=== PATIENT | female | born 1975 | race Caucasian/White ===

== ENCOUNTER 2017-07-16 08:43 | Emergency (ER) | payer OTHER ==
--- NOTE | 2017-07-16 09:27 | RADIOLOGY REPORT ---
EXAMINATION: XR HIP, RIGHT CLINICAL INFORMATION: Pain after running. COMPARISON: None TECHNIQUE: Two views of the right hip. FINDINGS: There is no visible fracture, dislocation or lytic process. No bony erosive changes seen. The soft tissues are normal. IMPRESSION: Unremarkable right hip exam.
--- NOTE | 2017-07-16 09:39 | ED UPPER/LOWER EXTREMITY COMPL ---
History of Present Illness General Chief Complaint: General Adult Stated Complaint: RIGHT HIP PAIN Source: patient Exam Limitations: no limitations Vital Signs & Intake/Output Vital Signs & Intake/Output Vital Signs Date Time Temp Pulse Resp B/P B/P Pulse O2 O2 Flow FiO2 Mean Ox Delivery Rate 07/16 0955 98.9 70 18 134/75 100 Room Air 07/16 0855 66 20 115/78 97 Allergies Coded Allergies: NO KNOWN ALLERGIES (07/16/17) Reconcile Medications Ketorolac Tromethamine 10 MG TABLET 1 TAB PO TID PRN PAIN Ketorolac Tromethamine 10 MG TABLET 1 TAB PO TID PRN PAIN Oxycodone HCl/Acetaminophen (Percocet 5-325 MG Tablet) 5 MG-325 MG TABLET 1 TAB PO BID PRN PAIN Triage Note: PER PT RT HIP PAIN AFTER RUNNING A ROAD RACE YESTERDAY, BEEN PAINFUL X 2 WEEKS BUT /OVERDID YESTERDAY LMP 07/01/17 Triage Nurses Notes Reviewed? yes Onset: Gradual Duration: getting worse Timing: recent history Severity: severe Severity Numbers: 8 : No Patient currently breastfeeds: No HPI: Patient is a 42-year-old female with an unremarkable past medical history who presents emergency room with concerns of a one-month history of gradual onset of right localized hip pain where she states that she does WORK OUT ALOT, especially running where she states that yesterday she ran 6 miles in a race where she states that after the run her symptoms of right hip pain has significantly worsened where she cannot tolerate weightbearing activities. Patient denies any trauma or mechanism of injury denies any fever chills denies any knee or ankle pain. Patient has been taking ibuprofen with minimal relief of symptoms Past History Travel History Traveled to [place] past 21 day No Medical History Any Pertinent Medical History? none Neurological: NONE EENT: NONE Cardiovascular: NONE Respiratory: NONE Gastrointestinal: NONE Hepatic: NONE Renal: NONE Musculoskeletal: NONE Psychiatric: NONE Endocrine: NONE Surgical History Surgical History: non-contributory Psychosocial History What is your primary language Macedonian Tobacco Use: Never used Family History Hx Contributory? No Review of Systems Review of Systems Constitutional: Reports: no symptoms. EENTM: Reports: no symptoms. Respiratory: Reports: no symptoms. Cardiovascular: Reports: no symptoms. Gastrointestinal/Abdominal: Reports: no symptoms. Genitourinary: Reports: no symptoms. Musculoskeletal: Reports: see HPI, joint pain. Skin: Reports: no symptoms. Neurological/Psychological: Reports: no symptoms. Hematologic/Endocrine: Reports: no symptoms. Immunological: Reports: no symptoms. All Other Systems: Reviewed and Negative Physical Exam Physical Exam General Appearance: no apparent distress, alert, comfortable Head: atraumatic Eyes: Bilateral: normal appearance. Ears, Nose, Throat: hearing grossly normal Neck: normal inspection Cardiovascular/Respiratory: no respiratory distress Peripheral Pulses: 2+ dorsalis pedis (R) Neurologic/Tendon: normal sensation, normal motor functions, normal tendon functions, responds to pain, no evidence tendon injury, no pulse deficit Skin: intact, normal color, warm/dry Comments: Right hip normal inspection generalized point tenderness noted Full active range of motion with hip flexion abduction and adduction with mild pain Right knee normal inspection nontender Progress Differential Diagnosis: arterial insufficiency, compartment syndrome, contusion, dislocation, DVT, fracture, gout, septic arthritis, sprain, tendon injury Plan of Care: Orders Procedure Date/time Status Durable Medical Equipment 07/16 950 Active Patient was neurovascularly intact to right lower extremity, x-rays were unremarkable discussed results with patient Differential diagnoses include arthritis versus stress fracture Crutches were advised Discussed disposition plan with patient with no questions Diagnostic Imaging: Viewed by Me: Radiology Read. Radiology Impression: no fracture Comments: PATIENT: BHARAT CARVALHO PRESENT AGE: 42 PATIENT ACCOUNT NO: [id number] : 77 LOCATION: [facility] ORDERING PHYSICIAN: Manoj Okeefe MD SERVICE DATE: 07/16/17 EXAM TYPE: RAD - XRY-HIP 2-3 VIEWS, RIGHT EXAMINATION: XR HIP, RIGHT CLINICAL INFORMATION: Pain after running. COMPARISON: None TECHNIQUE: Two views of the right hip. FINDINGS: There is no visible fracture, dislocation or lytic process. No bony erosive changes seen. The soft tissues are normal. IMPRESSION: Unremarkable right hip exam. DICTATED BY: Jony Vincent MD DATE/TIME DICTATED:07/16/17922 SANDER SETTER:ALEJANDRO DATE/TIME TRANSCRIBED:07/16/17922 CONFIDENTIAL, DO NOT COPY WITHOUT APPROPRIATE AUTHORIZATION. <Electronically signed in Other Vendor System> SIGNED BY: Jony Vincent MD 07/16/17926 Departure Departure Disposition: HOME OR SELF CARE Condition: Stable Clinical Impression Primary Impression: Right hip pain Referrals: Hieu VALLECILLO,Suni Estrella (PCP/Family) Isatu VALLECILLO,Chele Anthony Additional Instructions: As discussed begin using the crutches until YOU can walk without pain, if symptoms worsen return to emergency room, If no better on Sunday follow-up with orthopedic DR. DUMONT Begin using the prescription of Toradol for pain Prescriptions are waiting at [facility]. Begin icing 20 minutes every 2 hours Departure Forms: Customer Survey General Discharge Information Prescriptions: Current Visit Scripts Ketorolac Tromethamine 1 TAB PO TID PRN PAIN #15 TAB Ketorolac Tromethamine 1 TAB PO TID PRN PAIN #15 TAB Oxycodone HCl/Acetaminophen (Percocet 5-325 MG Tablet) 1 TAB PO BID PRN PAIN #8 TAB
[2017-07-16 09:55] VITALS: BP 134/75
[2017-07-16] MEDS ORDERED: KETOROLAC TROME10 M1 PO ×2 (10:01→10:25)
[2017-07-16] MEDS ORDERED: PERCOCET 5-3251 EACH PO (10:25)
== END 2017-07-16 10:23 ==
LOC: ERH 08:43
DX: M25.551 Pain in right hip (principal)
CPT/HCPCS: 73502-RT; 96372; J1885